=== PATIENT | male | born 1980 | race Caucasian/White ===

== ENCOUNTER 2019-04-15 18:33 | Emergency (ER) | payer BC, OTHER ==
[2019-04-15 18:57] VITALS: BP 107/44; PULSE 61
[2019-04-15] MEDS ORDERED: Ketorolac 60 MG/2 ML SDV IM ONE (19:24)
--- NOTE | 2019-04-15 19:27 | EDM.PDOC ---
ED HPI GENERAL MEDICAL PROBLEM - General Chief Complaint: Back Pain or Injury Stated Complaint: LOW BACK PAIN Time Seen by Provider: 04/15/19 19:10 Source of Information: Reports: Patient, Family History Limitations: Reports: No Limitations - History of Present Illness INITIAL COMMENTS - FREE TEXT/NARRATIVE: 38-year-old male has chronic recurring left lower back pain, the last 3 or 4 days ago and particularly bad with some radiation of pain down the thigh to just past the knee. He has pain with weightbearing. No injury. No incontinence. No specific weakness such as foot drop. The pain is always localized to the sacroiliac area of the left side. He's been to the chiropractor many times over the past several years for adjustments. Onset: Gradual Duration: Day(s): (increased symptoms for the last 4 days) Location: Reports: Back (Left lower back) Treatments [employer]: Reports: Acetaminophen lower back pain Pain Score (Numeric/FACES): 3 - Related Data Allergies Allergy/AdvReac Type Severity Reaction Status Date / Time No Known Allergies Allergy Verified 04/15/19 19:01 Home Meds: Home Meds Acetaminophen [Tylenol Extra Strength] 1,000 mg PO ASDIRECTED PRN 04/15/19 [ History] Past Medical History - Past Health History Medical/Surgical History: Denies Medical/Surgical History Musculoskeletal History: Reports: Back Pain, Chronic, Fracture, Other (See Below ) Other Musculoskeletal History: right ankle fracture - Infectious Disease History Infectious Disease History: Reports: Chicken Pox - Past Surgical History HEENT Surgical History: Reports: Tonsillectomy Social & Family History - Tobacco Use Smoking Status *Q: Never Smoker - Caffeine Use Caffeine Use: Reports: Soda - Recreational Drug Use Recreational Drug Use: No ED ROS GENERAL - Review of Systems Review Of Systems: See Below Constitutional: Denies: Fever, Chills HEENT: Reports: No Symptoms Respiratory: Reports: No Symptoms GI/Abdominal: Reports: No Symptoms : Reports: No Symptoms Musculoskeletal: Reports: Back Pain Neurological: Reports: Other (Some radiation of pain to the left buttock down the thigh just past the knee) ED EXAM,LOWER BACK PAIN/INJURY - Physical Exam Exam: See Below Exam Limited By: No Limitations General Appearance: Alert, No Apparent Distress, Other (Fairly comfortable while lying supine) Head: Atraumatic Respiratory/Chest: No Respiratory Distress Extremities: Other (Does have some outpatient tenderness over the SI joint of the left side up into the extreme lower lumbar area. Internal/external rotation is nontender. Strength of the lower extremity is normal compared to the right) Course - Vital Signs Last Recorded V/S: Last Vital Signs Temp 97.1 F 04/15/19 19:04 Pulse 61 04/15/19 19:04 Resp 16 04/15/19 19:04 BP 107/44 L 04/15/19 19:04 Pulse Ox 96 04/15/19 19:04 - Orders/Labs/Meds Meds: Medications Discontinued Medications Generic Name Dose Route Start Last Admin Trade Name Amena PRN Reason Stop Dose Admin Hydromorphone HCl 1 mg 04/15/19 20:10 04/15/19 20:15 Dilaudid IM 04/15/19 20:11 1 mg ONETIME ONE Administration Ketorolac Tromethamine 60 mg 04/15/19 19:24 04/15/19 19:40 Toradol IM 04/15/19 19:25 60 mg ONETIME ONE Administration - Re-Assessments/Exams Free Text/Narrative Re-Assessment/Exam: 04/15/19 19:27 Patient was given 60 mg of IM Toradol. 04/15/19 20:34 Toradol injection gave him only slight improvement. 1 mg of Dilaudid IM was then given a new be discharged with a Medrol Dosepak and 10 hydrocodone for extra pain control. Increase activity as tolerated and recheck with the primary provider later this week to discuss MRI or further studies if not improving. 04/15/19 23:08 After the 1 mg of Dilaudid the patient had good improvement and was able to ambulate out of the emergency room. Departure - Departure Time of Disposition: 20:43 Disposition: Home, Self-Care 01 Clinical Impression: Low back pain with left-sided sciatica Qualifiers: Chronicity: acute Back pain laterality: left Qualified Code(s): M54.42 - Lumbago with sciatica, left side - Discharge Information Instructions: Sciatica Referrals: PCP,None [Primary Care Provider] - Forms: ED Department Discharge Care Plan Goals: Take Medrol Dosepak as prescribed, ibuprofen or naproxen may be helpful and add stronger pain medication as directed if needed. Recheck with a primary provider later this week if not improving satisfactorily as more imaging studies or physical therapy may be needed.
[2019-04-15] MEDS ORDERED: HYDROmorphone 1 MG/ML Syringe IM ONE (20:10)
== END 2019-04-15 20:37 | disposition home or self-care (01) ==
LOC: JP.ED 18:33
DX: M54.42 Lumbago with sciatica, left side (principal)
CPT/HCPCS: 96372; 99283; J1170; J1885